=== PATIENT | female | born 1955 | race Caucasian/White ===

== ENCOUNTER 2019-09-20 12:03 | Emergency (ER) | payer OTHER ==
[~2019-09-20] VITALS: Ht 167.6 cm; Wt 77.1 kg
[2019-09-20] MEDS ORDERED: ALBUTEROL2.5 MG/3 M INH ×2 (12:16→12:50)
[2019-09-20] MEDS ORDERED: ZOLOFT100 MG PO ×2 (12:17→12:50)
[2019-09-20] MEDS ORDERED: PROVENTIL HFA6.7 GM INH (12:17)
[2019-09-20] MEDS ORDERED: MELOXICAM15 MG PO ×2 (12:18→12:50)
[2019-09-20] MEDS ORDERED: GABAPENTIN300 MG PO (12:18)
[2019-09-20] MEDS ORDERED: ALENDRONATE SOD10 MG PO ×2 (12:19→12:50)
[2019-09-20] MEDS ORDERED: GABAPENTIN100 MG PO (12:50)
[2019-09-20] MEDS ORDERED: VENTOLIN HFA18 GM INH (12:50)
== END 2019-09-20 13:04 | disposition home or self-care (01) ==
LOC: ED 12:03
DX: J42 Unspecified chronic bronchitis (principal); Z76.0 Encounter for issue of repeat prescription; M79.7 Fibromyalgia; M19.90 Unspecified osteoarthritis, unspecified site; M41.9 Scoliosis, unspecified; F17.200 Nicotine dependence, unspecified, uncomplicated; Z88.0 Allergy status to penicillin; Z88.5 Allergy status to narcotic agent; Z88.8 Allergy status to other drugs, medicaments and biological substances; Z79.899 Other long term (current) drug therapy; Z79.51 Long term (current) use of inhaled steroids
CPT/HCPCS: 99281